=== PATIENT | female | born 1995 | race Caucasian/White ===

== ENCOUNTER → 2021-09-08 08:32 | Outpatient (CLI) | payer OTHER, SELFPAY ==
--- NOTE | 2021-09-08 08:34 | DI.US.S_ITS ---
PROCEDURE: US OB <= 14 WEEKS FETUS INDICATIONS: Dating and viability OUTSIDE/PRIOR DATING DATA: Last menstrual period (LMP): 07/09/2021. LMP-based estimated date of delivery (EDNA): 04/15/2022. First dating scan (date and location): 09/08/2021. Estimated date of delivery (EDNA) from first dating scan: 04/14/2022. The calculations are made using the ultrasound EDNA of 04/14/2022. TECHNIQUE: Real-time scanning was performed of the fetus and maternal pelvic organs, with image documentation. COMPARISON: None. FINDINGS: Embryo: [place]-rump length measures 2.2 cm, 8 weeks 6 days Heart rate: 175 beats per minute Maternal organs: Ovaries demonstrate a left ovarian corpus luteum, otherwise unremarkable.. IMPRESSION: Living 1st trimester intrauterine with crown-rump length and heartbeat measuring 8 weeks 6 days. We strive to produce accurate, complete, and clear reports of imaging services. To assist us in improving patient care, this report was composed using standard report templates and voice recognition software. Therefore, it may contain abnormal punctuation, insertions and/or omissions. Occasional wrong-word or sound-alike substitutions may occur. Though we review the report and make efforts to correct it, we do recommend that the report be read carefully in proper context to recognize any text inaccuracies. Dictated by: Vic Rene M.D. on 09/08/2021 at 11:21 Approved by: Vic Rene M.D. on 09/08/2021 at 11:24
== END ==
PROVIDERS: PCP Physician Assistant; Referring Provider Obstetrics & Gynecology; Visit Provider Obstetrics & Gynecology
DX: Z34.01 Encounter for supervision of normal first pregnancy, first trimester (principal); Z3A.08 8 weeks gestation of pregnancy
CPT/HCPCS: 36415; 76801; 80055; 81003; 86787; 86803; 86850; 86900; 86901; 87389

== ENCOUNTER → 2021-09-08 09:14 | Outpatient (CLI) | payer OTHER, SELFPAY ==
[2021-09-08 09:52] LABS: Add Manual Diff / Slide Review NO; Basophils Absolute Auto 0 /uL (0-100); Basophils Percent Auto 0.4 % (0-2); Eosinophils Absolute Auto 100 /uL (0-450); Eosinophils Percent Auto 1.4 % (2-4); Hematocrit 38.4 % (36-46); Lymphocytes Absolute Auto 1800 /uL (1100-4500); Mean Corpuscular HGB Conc 33.7 % (30-36); Mean Corpuscular Hemoglobin 28.9 PG (26-34); Mean Corpuscular Volume 85.8 fL (80-100); Monocytes Absolute Auto 600 /uL (0-900); Monocytes Percent Auto 8.3 % (3-14); Neutrophils Absolute Auto 4900 /uL (1500-7000); Neutrophils Percent Auto 65.9 % (50-75); Platelet Count 275 X10^3/uL (150-400); Red Blood Cell Count 4.48 X10^6/uL (4.0-5.2); Red Cell Distribution Width 13.3 % (11.6-14.8); White Blood Cell Count 7.5 X10^3/uL (4.5-11.0)
[2021-09-08 10:02] LABS: Appearance Urine UA CLEAR; Bilirubin Urine UA NEGATIVE (NEGATIVE); Color Urine UA YELLOW; Glucose Urine UA NEGATIVE (Negative); Ketones Urine UA NEGATIVE (NEGATIVE); Leukocyte Esterase Urine UA NEGATIVE (NEGATIVE); Nitrite Urine UA NEGATIVE (Negative); Occult Blood Urine UA NEGATIVE (Negative); Protein Urine UA NEGATIVE (Negative); Specific Gravity Urine UA <=1.005 (1.000-1.035); Urobilinogen Urine UA 0.2 E.U./dL (0.2)
[2021-09-08 10:22] LABS: pH Urine UA 6.5 (4.5-8.0)
[2021-09-08 17:24] LABS: Hepatitis B Surface Antigen NEGATIVE s/c (NEGATIVE); Rubella Antibody IgG 23.6 IU/mL (>15)
[2021-09-08 17:45] LABS: HIV 1 & 2 Ab/Ag 4th Gen Combo NEGATIVE (NEGATIVE); Hep C Virus Ab w/Reflex Quant NEGATIVE s/c (NEGATIVE)
[2021-09-09 06:25] LABS: RPR Screen Non Reactive (Non Reactive)
[2021-09-09 12:02] LABS: Varicella IgG Antibody 308 index (Immune >165)
== END ==
PROVIDERS: PCP Physician Assistant; Referring Provider Obstetrics & Gynecology; Visit Provider Obstetrics & Gynecology
DX: Z34.01 Encounter for supervision of normal first pregnancy, first trimester (principal)
CPT/HCPCS: 36415; 80055; 81003; 86787; 86803; 86850; 86900; 86901; 87389

== ENCOUNTER → 2021-10-30 12:28 | Outpatient (CLI) | payer OTHER, SELFPAY ==
[2021-10-30 15:11] LABS: Urine N gonorrhoeae NOT DETECTED
[2021-10-30 15:12] LABS: Urine Chlamydia NOT DETECTED
[2021-11-01 20:23] LABS: AFP, Serum 16.6 ng/mL (.); Estriol, Free 0.61 ng/mL (.); Inhibin A, Dimeric 77.43 pg/mL (.); Maternal Ethnicity Caucasian (.); Maternal Weight 221 lbs (.); Number of Fetuses No (.); OSBR Risk 1 IN 10000 (.); Results Report (.); Test Results *Screen Negative* (.); hCG, MoM 1.18 (.); hCG, Serum 40122 mIU/mL (.)
== END ==
PROVIDERS: PCP Physician Assistant; Referring Provider Obstetrics & Gynecology; Visit Provider Obstetrics & Gynecology
DX: Z34.02 Encounter for supervision of normal first pregnancy, second trimester (principal); Z3A.16 16 weeks gestation of pregnancy
CPT/HCPCS: 36415; 82105; 82677; 84702; 86336; 87491; 87591

== ENCOUNTER → 2021-11-26 10:40 | Outpatient (CLI) | payer OTHER, SELFPAY ==
--- NOTE | 2021-11-26 10:41 | DI.US.S_ITS ---
PROCEDURE: US OB >= 14 WEEKS FETUS INDICATIONS: 20 Week Anatomy Scan OUTSIDE/PRIOR DATING DATA: Last menstrual period (LMP): 07/09/2021. LMP-based estimated date of delivery (EDNA): 05/15/2022. First dating scan (date and location): 09/08/2021. Estimated date of delivery (EDNA) from first dating scan: 04/14/2022. The calculations are made using the clinical EDNA of 04/15/2022. TECHNIQUE: Real-time scanning was performed of the fetus, with image documentation and biometric measurements. COMPARISON: [facility], OB <= 14 WEEKS FETUS, 09/08/2021, 8:45. FINDINGS: General: A single living intrauterine gestation is present. Presentation: Variable. Placenta: Placental position is posterior, without previa. Amniotic fluid index: 11.4 cm, normal range is 5-24 cm. Single deepest vertical pocket is 3.9 cm. heart rate: 145 beats per minute. Maternal cervical canal: 3.9 cm long. Normal lower limit is 2.5 cm. biometrics: Biparietal diameter: 4.7 cm 20 weeks 1 day Head circumference: 17.4 cm 20 weeks 0 days Abdominal circumference: 14.2 cm 19 weeks 4 days Femur length: 3.2 cm 19 weeks 6 days Clinically estimated gestational age: 20 weeks 0 days Composite gestational age from present scan: 19 weeks 6 days Estimated weight and percentile: 312 g 33rd percentile Anatomic survey: Neuro: Ventricles are non-dilated at less than 10 mm. Cisterna magna is normal at 3-11 mm. Cerebellum is normal in size and morphology. Nuchal skin fold: Normal at less than 6 mm between 14-21 weeks gestational age. Face: Nose and lips, facial profile are normal. Spine: Not well seen Heart: 4-chambered heart and ventricular outflow tracts are not well seen. Diaphragm: Not well seen Stomach: Left-sided stomach is present. Kidneys: No hydronephrosis. Normal is less than 5 mm in 2nd trimester, less than 7 mm in 3rd trimester. Cord: Not well seen Bladder: Normal in size. Extremities: All 4 extremities identified. IMPRESSION: Single live intrauterine with ultrasound gestational age today of 19 weeks 6 days. Portions of anatomy are not well visualized. Recommend interval follow-up for further evaluation of heart/outflow tracts, spine, cord insertion, chest/diaphragm. We strive to produce accurate, complete, and clear reports of imaging services. To assist us in improving patient care, this report was composed using standard report templates and voice recognition software. Therefore, it may contain abnormal punctuation, insertions and/or omissions. Occasional wrong-word or sound-alike substitutions may occur. Though we review the report and make efforts to correct it, we do recommend that the report be read carefully in proper context to recognize any text inaccuracies. Dictated by: Theresa Elias M.D. on 11/26/2021 at 17:34 Approved by: Theresa Elias M.D. on 11/26/2021 at 17:38
== END ==
PROVIDERS: PCP Physician Assistant; Referring Provider Obstetrics & Gynecology; Visit Provider Obstetrics & Gynecology
DX: Z34.02 Encounter for supervision of normal first pregnancy, second trimester (principal); Z3A.19 19 weeks gestation of pregnancy
CPT/HCPCS: 76811

== ENCOUNTER → 2021-12-10 06:43 | Outpatient (CLI) | payer OTHER, SELFPAY ==
--- NOTE | 2021-12-10 06:48 | DI.US.S_ITS ---
PROCEDURE: US OB FOLLOW UP INDICATIONS: FU anatomy scan OUTSIDE/PRIOR DATING DATA: Last menstrual period (LMP): 07/09/2021. LMP-based estimated date of delivery (EDNA): 04/15/2022 First dating scan (date and location): [facility] 09/08/2021 Estimated date of delivery (EDNA) from first dating scan: 04/14/2022 TECHNIQUE: Real-time scanning was performed of the fetus, with image documentation. Endovaginal scanning: Not performed today COMPARISON: 11/26/2021, 09/08/2021 FINDINGS: A single living intrauterine gestation is present. Presentation: Variable. Placenta: Posterior without previa Amniotic fluid index: 17.3 cm heart rate: 152 beats per minute Maternal cervical canal: 3.4 cm Estimated gestational age by initial ultrasound is 22 weeks. The cervical, thoracic, and lumbar spine are well seen and normal. The sacral spine in the skin line overlying is again not well seen due to lie. No gross abnormality/herniation is detected. Cord insertion is within normal limits. Diaphragm is within normal limits. Four-chamber and outflow tracts are well seen. IMPRESSION: Single living intrauterine at 22 weeks by initial ultrasound. Sacral spine sagittal view, including the skin overlying the spine is again not well seen secondary to lie and patient body habitus. Other parts of the anatomic survey are seen and normal, in conjunction with the previous study. Dictated by: Macho Sosa M.D. on 12/10/2021 at 12:03 Approved by: Macho Sosa M.D. on 12/10/2021 at 12:08
== END ==
PROVIDERS: PCP Physician Assistant; Referring Provider Obstetrics & Gynecology; Visit Provider Specialist
DX: Z34.92 Encounter for supervision of normal pregnancy, unspecified, second trimester (principal); Z3A.22 22 weeks gestation of pregnancy
CPT/HCPCS: 76816

== ENCOUNTER → 2022-01-16 10:16 | Outpatient (CLI) | payer OTHER, SELFPAY ==
[2022-01-16 12:49] LABS: Hematocrit 37.6 % (36-46); Hemoglobin 12.3 g/dL (12.0-16.0)
[2022-01-16 13:23] LABS: GTT (PREG) 1 Hour PP 50gm Dose 84 mg/dL (76-139)
== END ==
PROVIDERS: PCP Physician Assistant; Referring Provider Obstetrics & Gynecology; Visit Provider Obstetrics & Gynecology
DX: O26.899 Other specified pregnancy related conditions, unspecified trimester (principal); Z3A.26 26 weeks gestation of pregnancy; Z67.91 Unspecified blood type, Rh negative
CPT/HCPCS: 36415; 82950; 85014; 85018; 86850

== ENCOUNTER → 2022-02-17 11:15 | Outpatient (CLI) | payer OTHER, SELFPAY ==
--- NOTE | 2022-02-17 11:16 | DI.US.S_ITS ---
PROCEDURE: US OB FOLLOW UP INDICATIONS: SACRAL SPINE ANATOMY FOLLOW UP OUTSIDE/PRIOR DATING DATA: Last menstrual period (LMP): July 09, 2021. LMP-based estimated date of delivery (EDNA): April 15, 2022. First dating scan (date and location): September 08, 2021. Estimated date of delivery (EDNA) from first dating scan: April 14, 2022. TECHNIQUE: Real-time scanning was performed of the fetus, with image documentation. Endovaginal scanning: Not performed COMPARISON: [facility], OB FOLLOW UP, 12/10/2021, 7:07. FINDINGS: A single living intrauterine gestation is present. Presentation: Vertex. Placenta: Placental position is posterior, without previa. Amniotic fluid index: 14.3 cm, normal range is 5-24 cm. Single deepest vertical pocket is 6.2 cm. heart rate: 160 beats per minute. Maternal cervical canal: 3.3 cm long. Normal lower limit is 2.5 cm. Estimated gestational age from initial scan: 31 weeks and 6 days. The sacral spine was re-evaluated and appears within normal limits on today's evaluation. IMPRESSION: Single living intrauterine gestation with estimated gestational age of approximately 31 weeks and 6 days. Re-evaluation of the sacral spine appears within normal limits. Dictated by: Rafael Damon M.D. on 02/17/2022 at 21:00 Approved by: Rafael Damon M.D. on 02/17/2022 at 21:03
== END ==
PROVIDERS: PCP Student in an Organized Health Care Education/Training Program; Referring Provider Obstetrics & Gynecology; Visit Provider Obstetrics & Gynecology
DX: Z36.2 Encounter for other antenatal screening follow-up (principal); Z3A.31 31 weeks gestation of pregnancy
CPT/HCPCS: 76816; 76817

== ENCOUNTER → 2022-03-18 07:58 | Outpatient (CLI) | payer OTHER, SELFPAY ==
[2022-03-19 11:48] LABS: Strep Grp B PCR POS for Grp B Strep
== END ==
PROVIDERS: PCP Student in an Organized Health Care Education/Training Program; Visit Provider Obstetrics & Gynecology
DX: Z34.83 Encounter for supervision of other normal pregnancy, third trimester (principal); Z3A.36 36 weeks gestation of pregnancy
CPT/HCPCS: 87086; 87653

== ENCOUNTER → 2022-03-25 08:37 | Outpatient (CLI) | payer OTHER, SELFPAY ==
[2022-03-25 09:31] LABS: Add Manual Diff / Slide Review NO; Basophils Absolute Auto 100 /uL (0-100); Basophils Percent Auto 0.5 % (0-2); Eosinophils Absolute Auto 100 /uL (0-450); Eosinophils Percent Auto 1.2 % (2-4); Hematocrit 38.5 % (36-46); Hemoglobin 12.5 g/dL (12.0-16.0); Lymphocytes Absolute Auto 1900 /uL (1100-4500); Lymphocytes Percent Auto 15.7 % (25-40); Mean Corpuscular HGB Conc 32.4 % (30-36); Mean Corpuscular Hemoglobin 28.1 PG (26-34); Mean Corpuscular Volume 86.7 fL (80-100); Monocytes Absolute Auto 1300 /uL (0-900); Monocytes Percent Auto 10.3 % (3-14); Neutrophils Absolute Auto 8800 /uL (1500-7000); Neutrophils Percent Auto 72.3 % (50-75); Platelet Count 271 X10^3/uL (150-400); Red Blood Cell Count 4.44 X10^6/uL (4.0-5.2); Red Cell Distribution Width 14.6 % (11.6-14.8); White Blood Cell Count 12.2 X10^3/uL (4.5-11.0)
[2022-03-25 09:46] LABS: Alanine Aminotransferase 16 IU/L (<35); Albumin 3.4 g/dL (3.5-5.0); Albumin Globulin Ratio 1.1 (1.0-2.8); Alkaline Phosphatase 110 U/L (38-126); Aspartate Aminotransferase 21 IU/L (14-36); BUN Creatinine Ratio 16.7 (6-22); Bilirubin Total 0.3 mg/dL (0.2-1.3); Blood Urea Nitrogen 9 mg/dL (7-17); Calcium 9.7 mg/dL (8.4-10.2); Carbon Dioxide 22 mmol/L (22-32); Chloride 106 mmol/L (98-107); Estimated Glomerular Filt Rate > 60 mL/min (>60); Glucose 90 mg/dL (70-100); HEMOLYSIS < 15 (0-50); Potassium 4.1 mmol/L (3.4-5.1); Sodium 135 mmol/L (137-145); Total Protein 6.4 g/dL (6.3-8.2); Uric Acid 3.8 mg/dL (2.5-6.2)
== END ==
PROVIDERS: PCP Student in an Organized Health Care Education/Training Program; Referring Provider Obstetrics & Gynecology; Visit Provider Obstetrics & Gynecology
DX: O13.9 Gestational [pregnancy-induced] hypertension without significant proteinuria, unspecified trimester (principal)
CPT/HCPCS: 36415; 80053; 84550; 85025

== ENCOUNTER → 2022-04-01 12:17 | Outpatient (CLI) | payer OTHER, SELFPAY | PROVIDERS: PCP Student in an Organized Health Care Education/Training Program; Visit Provider Obstetrics & Gynecology | DX: Z34.03 Encounter for supervision of normal first pregnancy, third trimester (principal); Z3A.36 36 weeks gestation of pregnancy | CPT/HCPCS: 87086 ==

== ENCOUNTER → 2022-04-01 12:26 | Outpatient (CLI) | payer OTHER, SELFPAY ==
[2022-04-01 13:17] LABS: Add Manual Diff / Slide Review NO; Basophils Absolute Auto 0 /uL (0-100); Basophils Percent Auto 0.1 % (0-2); Eosinophils Absolute Auto 100 /uL (0-450); Eosinophils Percent Auto 0.6 % (2-4); Hematocrit 37.6 % (36-46); Hemoglobin 12.3 g/dL (12.0-16.0); Lymphocytes Absolute Auto 1700 /uL (1100-4500); Lymphocytes Percent Auto 14.1 % (25-40); Mean Corpuscular HGB Conc 32.8 % (30-36); Mean Corpuscular Hemoglobin 28.1 PG (26-34); Mean Corpuscular Volume 85.7 fL (80-100); Monocytes Absolute Auto 1400 /uL (0-900); Monocytes Percent Auto 11.5 % (3-14); Neutrophils Absolute Auto 8600 /uL (1500-7000); Neutrophils Percent Auto 73.7 % (50-75); Platelet Count 268 X10^3/uL (150-400); Red Blood Cell Count 4.39 X10^6/uL (4.0-5.2); Red Cell Distribution Width 14.6 % (11.6-14.8); White Blood Cell Count 11.7 X10^3/uL (4.5-11.0)
[2022-04-01 14:25] LABS: Alanine Aminotransferase 18 IU/L (<35); Albumin 3.5 g/dL (3.5-5.0); Albumin Globulin Ratio 1.1 (1.0-2.8); Alkaline Phosphatase 122 U/L (38-126); Aspartate Aminotransferase 22 IU/L (14-36); BUN Creatinine Ratio 11.8 (6-22); Bilirubin Total 0.3 mg/dL (0.2-1.3); Blood Urea Nitrogen 6 mg/dL (7-17); Calcium 9.5 mg/dL (8.4-10.2); Carbon Dioxide 22 mmol/L (22-32); Chloride 105 mmol/L (98-107); Estimated Glomerular Filt Rate > 60 mL/min (>60); Globulin 3.1 g/dL (1.7-4.1); Glucose 88 mg/dL (70-100); HEMOLYSIS < 15 (0-50); Potassium 4.3 mmol/L (3.4-5.1); Sodium 133 mmol/L (137-145); Total Protein 6.6 g/dL (6.3-8.2)
== END ==
PROVIDERS: PCP Student in an Organized Health Care Education/Training Program; Referring Provider Obstetrics & Gynecology; Visit Provider Obstetrics & Gynecology
DX: O13.3 Gestational [pregnancy-induced] hypertension without significant proteinuria, third trimester (principal); Z3A.36 36 weeks gestation of pregnancy
CPT/HCPCS: 36415; 80053; 85025; 87086

== ENCOUNTER 2022-04-06 19:19 | Inpatient (IN) | payer OTHER, SELFPAY ==
[2022-04-06 20:14] VITALS: BP 122/74; PULSE 92
[2022-04-06] MEDS: LABETALOL 100 MG TABLET PO (20:14)
[2022-04-06 20:28] LABS: Add Manual Diff / Slide Review NO; Basophils Absolute Auto 0 /uL (0-100); Basophils Percent Auto 0.4 % (0-2); Eosinophils Absolute Auto 100 /uL (0-450); Eosinophils Percent Auto 0.5 % (2-4); Hemoglobin 12.4 g/dL (12.0-16.0); Lymphocytes Absolute Auto 1900 /uL (1100-4500); Lymphocytes Percent Auto 19.9 % (25-40); Mean Corpuscular HGB Conc 34.3 % (30-36); Mean Corpuscular Volume 84.5 fL (80-100); Monocytes Absolute Auto 1000 /uL (0-900); Monocytes Percent Auto 10.6 % (3-14); Neutrophils Absolute Auto 6600 /uL (1500-7000); Neutrophils Percent Auto 68.6 % (50-75); Platelet Count 282 X10^3/uL (150-400); Red Blood Cell Count 4.26 X10^6/uL (4.0-5.2); Red Cell Distribution Width 14.2 % (11.6-14.8); White Blood Cell Count 9.6 X10^3/uL (4.5-11.0)
[2022-04-06] MEDS: miSOPROStoL 200 MCG TABLET 50 MCG PO (20:43)
--- NOTE | 2022-04-06 21:27 | P.HPOB_ITS ---
OB HPI Date/Time Date of admission: 04/06/22 Date Patient Seen: 04/07/22 Time Patient Seen: 08:05 History of Present Condition Chief complaint: IUP 38+5 wks EGA, GHTN, Rh NEG, GBS+ : 1 Para: 0 Estimated Date of Delivery: 04/15/22 Estimated Gestational Age (weeks): 38+5 Narrative: Chai Benítez is a 27 year old admitted for cervical ripening and induction now at 38+5 weeks EGA due to gestational HTN currently treated with Labetalol 100 mg PO BID. Twice weekly NSTs and lab testing have been unremarkable with the exception of mild elevation of the protein to creatinine ratio. Patient's course is largely been uneventful with firm dating and appropriate milestones throughout. Patient is Rh negative and received RhoGAM at 28 weeks. Patient is GBS positive. Indications Indication for induction OB: gestational HTN/pre-eclampsia History of Present care: good care Obstetrical complications: gestational hypertension Medical complications: none Preadmission Labs Blood type: 0 (-) negative -: Antibody screen: negative, GBS status: positive, HBsAG: negative, HIV: negative and RPR/VDLR: negative -: Chlamydia screen: not detected and Gonorrhea screen: not detected -: Rubella: immune and Varicella: immune HCT: 37.6 HCAB: negative PAP: Normal Quad screen: Normal 1 hr GTT: 84 Prior (ies) History: G1 Evaluation Evaluation Baseline heart rate: 140 Variability: Moderate (11-25) monitor accelerations: Present Monitor Decelerations: Absent Contraction Frequency (minutes): 5 Uterine Contraction Intensity: Mild Category of Tracing: Reactive Status: Category l Dilation (cm): 1 Effacement (%): 85 Dilation: Closed Effacement: >/=80% station: -2 Position of cervix: mid Consistency: soft Santana score: 7 [facility] Medical History (Updated 04/01/22 @ 12:27 by Edgard Benavides MD) Acid reflux Family History (Updated 09/01/21 @ 15:05 by Amy Harry RN) Mother No known health problems Grandfather Stroke Heart disease Stomach cancer Grandmother No known health problems Father No known health problems Grandfather No known health problems Grandmother No known health problems Social History marital status: number of children: 0 household members: spouse lives independently: Yes housing: house pets and animals: Yes (2 dogs and 1 guinea pig) education level: college (Gerardo's degree) occupational status: employed (sales) current occupational exposures/hazards: No special kaylin needs: No travel history: over 6 months ago seatbelt use: always water heater temp set < 120 deg: Yes working smoke detector in home: Yes fire extinguisher in home: No carbon monox detector in home: Yes firearms in home: Yes firearms unloaded and locked: Yes do you feel safe at home: Yes Smoking Status: Never smoker second hand exposure: No alcohol intake: former (occasional, not while ) substance use type: marijuana (CBD gummies years ago) during the past year weight has: increased > 10 lbs well-balanced diet: about half the time daily servings fruits/ve-4 caffeine: No (unable to tolerate coffee since ) Type(s) of exercise: walking, weight lifting, other (hiking) and yoga Meds Home Medications and Allergies Home Medications Medication Instructions Recorded Confirmed Type prenat.vits,domenic,xqa-tdcz-bewnu 1 tab PO DAILY 09/01/21 04/06/22 History labetalol 100 mg tablet 100 mg PO BID #60 tabs 03/25/22 04/06/22 Rx Allergies Allergy/AdvReac Type Severity Reaction Status Date / Time No Known Allergies Allergy Verified 04/01/22 11:44 Review of Systems Review of Systems Narrative: Problem-specific ROS positives included in HPI OB Exam Vital signs Blood Pressure: 115/74 Pulse Rate: 89 Temperature: 97.7 F HENMT Head: normal to inspection, normocephalic and atraumatic Eyes General: appearance normal, both eyes and all related structures Resp Effort & Inspection: normal respiratory effort and able to speak in complete sentences Auscultation: clear to auscultation bilaterally Cardio Rate: regular rate Rhythm: regular rhythm Heart Sounds: S1 normal, S2 normal and no murmurs Extremities Lower extremity: Yes normal to inspection GI Inspection: normal to inspection Palpation: Yes soft and Yes no hepatosplenomegaly Uterus Location (Fundal Height): 38 Presentation: vertex Estimated Weight (lbs): 8 Objective Labs 04/06/22 20:00 Labs: Laboratory Results - last 24 hr 04/06/22 20:00 WBC 9.6 RBC 4.26 Hgb 12.4 Hct 36.0 MCV 84.5 MCH 29.0 MCHC 34.3 RDW 14.2 Plt Count 282 Neut % (Auto) 68.6 Lymph % (Auto) 19.9 L [place] % (Auto) 10.6 Eos % (Auto) 0.5 L Baso % (Auto) 0.4 Neut # (Auto) 6600 Lymph # (Auto) 1900 [place] # (Auto) 1000 H Eos # (Auto) 100 Baso # (Auto) 0 Assessment and Plan Assessment and Plan Assessment and Plan narrative: ASSESSMENT 1. Intrauterine , 38+5 weeks EGA 2. Gestational HTN/PEC w/o severe features 3. Rh negative status 4. GBS positive PLAN 1. Admit for ripening/induction 2. See orders Time Spent with Patient Total time spent with greater than 50% in coordination of care (as documented) at patient's floor/unit and/or counseling patient:: 15-24 minutes
[2022-04-06 22:10] LABS: Alanine Aminotransferase 25 IU/L (<35); Albumin 3.5 g/dL (3.5-5.0); Albumin Globulin Ratio 1.1 (1.0-2.8); Alkaline Phosphatase 130 U/L (38-126); Aspartate Aminotransferase 28 IU/L (14-36); BUN Creatinine Ratio 8.8 (6-22); Bilirubin Total 0.5 mg/dL (0.2-1.3); Blood Urea Nitrogen 5 mg/dL (7-17); Calcium 8.8 mg/dL (8.4-10.2); Carbon Dioxide 23 mmol/L (22-32); Chloride 106 mmol/L (98-107); Estimated Glomerular Filt Rate > 60 mL/min (>60); Globulin 3.2 g/dL (1.7-4.1); Glucose 77 mg/dL (70-100); HEMOLYSIS < 15 (0-50); Potassium 3.2 mmol/L (3.4-5.1); Sodium 137 mmol/L (137-145); Total Protein 6.7 g/dL (6.3-8.2)
[2022-04-06 22:26] LABS: Protein (Total) Urine Random 14 mg/dL (0-12)
[2022-04-07] MEDS: miSOPROStoL 200 MCG TABLET 50 MCG PO (02:42)
[2022-04-07 08:26] VITALS: BP 115/74; PULSE 89; TEMP 36.5
[2022-04-07] MEDS: LACTATED RINGERS 1,000 ML 100 ML IV ×2 (08:45→16:57)
[2022-04-07] MEDS: OXYTOCIN PREMIX 30 UNIT/500 ML PLAST..BAG IV (08:46)
[2022-04-07 09:01] VITALS: BP 113/70; PULSE 85
[2022-04-07] MEDS: LABETALOL 100 MG TABLET PO ×2 (09:01→22:14)
[2022-04-07] MEDS: PENICILLIN G POTASSIUM 5,000,000 UNIT in DEXTROSE 5% IN WATER 250 ML 250 UNIT IV (09:01)
[2022-04-07] MEDS: PENICILLIN G POTASSIUM 3,000,000 UNIT/50 ML FROZ.PIGGY 50 UNIT IV ×3 (13:03→21:04)
--- NOTE | 2022-04-07 17:20 | PM.OBPNLAB ---
Date/Time Date Patient Seen: 04/07/22 Time Patient Seen: 17:20 Pain Control Pain control: tolerating well Pelvic Exam Dilation (cm): 2 Effacement (%): 90 station: -1 Amniotic membrane status: Intact Contractions Contractions on admission: none Monitor mode: External Pitocin rate (mU/min): 10 Contraction pattern: Regular Contraction phase: Resting Contraction intensity: Mild Status status: Category l Heart Rate Baseline: 135 Monitor Accelerations: Present Monitor Decelerations: Absent Monitor Variability: Moderate Assessment and Plan Assessment: induction ongoing Plan: other Comments: Patient has progressed slowly today with pitocin following PO cytotec but Santana's score now 9. Options reviewed with the patient and will stop Pitocin overnight in favor of cervidil placement and re-evaluate in the AM if undelivered.
[2022-04-07] MEDS: CALCIUM CARBONATE 500 MG TAB PO (22:12)
[2022-04-07 22:14] VITALS: BP 118/79; PULSE 105
[2022-04-07 22:48] VITALS: BP 125/74; PULSE 97
--- NOTE | 2022-04-08 00:25 | PM.OBPRVD ---
Events: Induced HTN Labor & Delivery Delivery date: 04/07/22 Intrapartal Events: None Cervical ripening method: per misoprostal protocol Induction method: per pitocin protocol Delivery augmentation: pitocin Delivery monitor: external FHT and external uterine Route of delivery: Episiotomy description: None L&D Laceration Description: Perineal - 1st Degree and Labial (Right, 2nd degree; Left 1st degree) Delivery repair: chromic Estimated blood loss (mL): 250 Anesthesia Type: Epidural Complications: None Narrative: Following a 57 minute 2nd stage, the patient delivered spontaneously over an intact perineum viable male infant from left occiput anterior position with a weight 3107 gms. (6 lb. 13.6 oz.) and Apgars of 9/9. No shoulder dystocia or cord entanglement was noted but the delivering presentation was compound with the vertex in the right hand. Following delivery of the infant, skin to skin contact was initiated immediately and delayed cord clamping performed. Once the umbilical cord was doubly clamped and cut, a cord blood sample was obtained for routine studies. The placenta was delivered easily with gentle cord traction and suprapubic countertraction. Placenta was then inspected and found to be intact with a three-vessel cord inserting centrally. Intravenous Pitocin was initiated immediately after delivery of the placenta and post delivery bleeding was minimal. Inspection of the perineum revealed the lacerations as noted above and each was individually closed with either 2-0 or 3-0 chromic catgut suture under epidural anesthesia. Mother and infant both tolerated the delivery process well and were in good condition at conclusion. No complications were experienced. Baby 1: Infant gender: Male Presentation: vertex Position: Left Occiput Anterior Placenta delivery description: Spontaneous Cord Vessel Description: 3 Vessels score (1 min): 9 score (5 min): 9 weight: 6 lb 13.596 oz Plan for aftercare: Routine care
[2022-04-08] MEDS: IBUPROFEN 600 MG TABLET PO ×3 (02:42→14:19)
[2022-04-08] MEDS: ACETAMINOPHEN 325 MG TABLET 650 MG PO ×3 (02:42→14:19)
[2022-04-08] MEDS: DERMOPLAST SPRAY 20% 60 ML 1 SPRAY TOP (02:44)
[2022-04-08] MEDS: LANOLIN OINT 7 GM 1 APPLIC TOP (07:57)
[2022-04-08 09:11] VITALS: BP 106/60; PULSE 68
[2022-04-08] MEDS: DOCUSATE 100 MG CAPSULE PO ×2 (09:11→21:16)
[2022-04-08] MEDS: LABETALOL 100 MG TABLET PO (09:11)
[2022-04-08 14:11] LABS: Add Manual Diff / Slide Review NO; Basophils Absolute Auto 0 /uL (0-100); Basophils Percent Auto 0.3 % (0-2); Eosinophils Absolute Auto 100 /uL (0-450); Eosinophils Percent Auto 0.6 % (2-4); Hematocrit 33.7 % (36-46); Hemoglobin 11.1 g/dL (12.0-16.0); Lymphocytes Absolute Auto 2400 /uL (1100-4500); Mean Corpuscular HGB Conc 32.9 % (30-36); Mean Corpuscular Hemoglobin 28.3 PG (26-34); Mean Corpuscular Volume 86.1 fL (80-100); Monocytes Absolute Auto 1400 /uL (0-900); Neutrophils Absolute Auto 8800 /uL (1500-7000); Neutrophils Percent Auto 69.1 % (50-75); Platelet Count 258 X10^3/uL (150-400); Red Blood Cell Count 3.91 X10^6/uL (4.0-5.2); Red Cell Distribution Width 14.2 % (11.6-14.8); White Blood Cell Count 12.7 X10^3/uL (4.5-11.0)
[2022-04-08 15:00] VITALS: BP 134/79; PULSE 90; RESP 16; TEMP 36.5
--- NOTE | 2022-04-08 17:43 | PM.OBPN.1 ---
Subjective - OB Subjective Patient comments: no complaints, pain well controlled and flatus present baby status: doing well [place] feeding status: exclusively breast feeding Narrative: Mother and baby are both doing extremely well. Date Patient Seen: 04/08/22 Time Patient Seen: 08:10 Exam Const General: cooperative and comfortable Nutritional Appearance: average body habitus Orientation: alert and oriented x3 HENMT Head: normal to inspection, atraumatic and abrasion Ears: hearing grossly normal bilaterally Face and sinus: face symmetric Eyes General: appearance normal, both eyes and all related structures Conjunctivae: conjunctivae normal Sclera: sclerae normal EOM: EOM intact bilaterally Neck Neck: normal visual inspection Resp Effort & Inspection: normal respiratory effort and able to speak in complete sentences External Female Exam: other (No significant bleeding noted) Extrem General: no calf tenderness Psych Appearance: grossly normal Mental Status: mental status grossly normal Speech and Movement: speech and movement normal Mood: congruent mood Affect: normal affect Attitude: cooperative Thought Process: normal Thought Content: normal Judgment: judgment good Objective Labs 04/08/22 13:59 04/06/22 21:45 Labs: Laboratory Results - last 24 hr 04/08/22 13:59 WBC 12.7 H RBC 3.91 L Hgb 11.1 L Hct 33.7 L MCV 86.1 MCH 28.3 MCHC 32.9 RDW 14.2 Plt Count 258 Neut % (Auto) 69.1 Lymph % (Auto) 19.0 L [place] % (Auto) 11.0 Eos % (Auto) 0.6 L Baso % (Auto) 0.3 Neut # (Auto) 8800 H Lymph # (Auto) 2400 [place] # (Auto) 1400 H Eos # (Auto) 100 Baso # (Auto) 0 Assessment & Plan Plan day: 1 plan OB: routine care Comments: Anticipate discharge to 04/09/2022 Time Spent With Patient Time: Total time spent is greater than 50% in coordination of care (as documented) at patient's floor/unit and/or counseling patient: Time with patient: 15-24 minutes
[2022-04-09] MEDS: IBUPROFEN 600 MG TABLET PO (05:25)
--- NOTE | 2022-04-09 07:45 | P.DS_ITS ---
Discharge Providers Provider Date of admission: 04/06/22 19:19 Discharge Date: 04/09/22 Primary care physician: Moe De La Rosa MD Consults: 04/06/22 19:41 Consult to Anesthesiology Urgent Comment: Consulting Provider: Edgard Benavides Reason for consultation: Epidural Has provider been notified: No 04/09/22 00:21 Consult to [employer] Routine Comment: Discharge provider: Edgard Benavides MD Summary Hospital Course Date Patient Seen: 04/09/22 Time Patient Seen: 07:45 Diagnoses: Intrauterine gestation, 38+ 5 weeks gestational age, delivered by spontaneous vaginal Gestational hypertension Rh-negative status GBS positive Hospital Course: Chai was admitted on the evening of 04/06/2022 for cervical ripening prior to induction for gestational hypertension. Oral Cytotec was initiated initially for ripening followed by initiation of Pitocin for induction on the morning of 04/07/2022. She delivered late on the evening of 04/07/2022 viable male with Apgars of 9/9 and a weight of 3107 g (6 lb 13.6 oz). Both mother and baby have done well following delivery with the mother experiencing prompt return of bowel and bladder function, she is ambulating independently, tolerating regular diet, and her pain is well controlled with oral pain medications. She will be discharged at this time to home in an afebrile normotensive condition after counseling regarding precautionary symptoms, limitations of activity, medications, and plans for follow-up which will be in 6 weeks. Patient will continue using her labetalol 100 mg p.o. b.i.d. until her 6 week checkup and will also resume vitamins daily. In addition she was prescribed ibuprofen 600 mg p.o. q.6 hours as needed for pain. Peripartum Data Infant Delivery Method: Natural Vaginal Laceration Description: Perineal - 1st Degree and Labial (Bilateral) Episiotomy description: None Procedures: Continuous lumbar epidural placement in labor Spontaneous vaginal complications: none [place] 1: Gender: Male Disposition of : home Discharge Diagnosis (1) GBS (group B Streptococcus carrier), +RV culture, currently : Status: Acute (2) Gestational hypertension: Status: Acute (3) Rh negative state in antepartum period: Status: Acute (4) : Status: Acute Status at Discharge Cognitive/behavioral status at discharge: oriented Functional status at discharge: independent ambulation Overall status at discharge: patient is progressing back to baseline Time Spent with Patient Time attestation: Total time spent providing and/or coordinating discharge services: Time spent: Less than 30 minutes Objective Labs 04/08/22 13:59 04/06/22 21:45 Labs: Laboratory Results - last 24 hr 04/08/22 13:59 WBC 12.7 H RBC 3.91 L Hgb 11.1 L Hct 33.7 L MCV 86.1 MCH 28.3 MCHC 32.9 RDW 14.2 Plt Count 258 Neut % (Auto) 69.1 Lymph % (Auto) 19.0 L [place] % (Auto) 11.0 Eos % (Auto) 0.6 L Baso % (Auto) 0.3 Neut # (Auto) 8800 H Lymph # (Auto) 2400 [place] # (Auto) 1400 H Eos # (Auto) 100 Baso # (Auto) 0 Exam Const General: cooperative and comfortable Nutritional Appearance: average body habitus Orientation: alert and oriented x3 HENMT Head: normal to inspection, atraumatic and abrasion Ears: hearing grossly normal bilaterally Face and sinus: face symmetric Eyes General: appearance normal, both eyes and all related structures Conjunctivae: conjunctivae normal Sclera: sclerae normal EOM: EOM intact bilaterally Neck Neck: normal visual inspection Resp Effort & Inspection: normal respiratory effort and able to speak in complete sentences GI Inspection: normal to inspection Palpation: soft and no hepatosplenomegaly External Female Exam: other (No significant bleeding noted) Extrem General: no calf tenderness Psych Appearance: grossly normal Mental Status: mental status grossly normal Speech and Movement: speech and movement normal Mood: congruent mood Affect: normal affect Attitude: cooperative Thought Process: normal Thought Content: normal Judgment: judgment good Discharge Plan Discharge Plan Patient Disposition: Home Provider Discharge Comment: Please review the written instructions you received when you were discharged from the hospital. Your follow-up appointment will be scheduled for 6 weeks after delivery and I look forward to seeing you then. If however in the meanwhile you have any issues, concerns, or questions, please contact me either through the office phone at [phone], or via the patient portal. Discharge orders & Medications Prescriptions: New ibuprofen 600 mg Tablet 600 mg PO Q6HR PRN (Reason: Pain, Mild (1-3)) Qty: 60 2RF Continued labetalol 100 mg tablet 100 mg PO BID Qty: 60 0RF prenat.vits,domenic,bai-ahmq-oyclc Tablet 1 tab PO DAILY Follow up/Referrals: Moe De La Rosa DO [Primary Care Provider] - Edgard Benavides MD [Physician] - Discharge Health Status Multidrug resistant organism: No MDRO Diet/Activity/Treatments Diet: Diet as Tolerated Activity: As tolerated Other treatments: Dqeo-obp-zelyglp Tylenol may be used for additional pain relief. Mtty-son-uptdsav stool softeners and/or MiraLax may be used for constipation. Skin/Wound/Dressing Care Report to your healthcare provider any signs of infection, such as:: chills, fever, increased pain, unusual drainage and unusual redness Dressing: N/A Visit Report/Discharge Packet Instructions: DI for Labor and Delivery, Vaginal , DI for and Nipple Soreness Stand Alone Forms: Discharge: Care Discharge Data Primary Care Provider: Moe De La Rosa
[2022-04-09 08:46] VITALS: BP 134/79; PULSE 90
[2022-04-09] MEDS: LABETALOL 100 MG TABLET PO (08:46)
[2022-04-09] MEDS: DOCUSATE 100 MG CAPSULE PO (08:47)
[2022-04-09] MEDS: TET,DIPH,PERTUSS(ACELL),VAC/PF 0.5 ML SYRINGE IM (10:41)
[2022-04-09 10:54] VITALS: BP 126/70; PULSE 81
== END 2022-04-09 10:59 | disposition home or self-care (01) | DRG 807 ==
PROVIDERS: Admitting Provider Obstetrics & Gynecology; PCP Student in an Organized Health Care Education/Training Program; Referring Provider Obstetrics & Gynecology; Visit Provider Obstetrics & Gynecology
DX: O13.4 Gestational [pregnancy-induced] hypertension without significant proteinuria, complicating childbirth (principal); Z37.0 Single live birth; Z3A.38 38 weeks gestation of pregnancy; O99.824 Streptococcus B carrier state complicating childbirth; Z67.41 Type O blood, Rh negative; O70.1 Second degree perineal laceration during delivery; O70.0 First degree perineal laceration during delivery
CPT/HCPCS: 36415; 59050; 59200; 59400; 80053; 82570; 84156; 85025; 86850; 86900; 86901; 90715; G0379; J2540; J2590; S0191

== ENCOUNTER → 2024-02-07 07:13 | Outpatient (CLI) | payer OTHER, SELFPAY ==
--- NOTE | 2024-02-07 07:14 | DI.US.S_ITS ---
PROCEDURE: US OB <= 14 WEEKS FETUS INDICATIONS: dating and viability OUTSIDE/PRIOR DATING DATA: Last menstrual period (LMP): 12/12/2023 LMP-based estimated date of delivery (EDNA): 09/17/2024 First dating scan (date and location): 02/07/2024 Estimated date of delivery (EDNA) from first dating scan: 09/25/2024 TECHNIQUE: Real-time scanning was performed of the fetus and maternal pelvic organs, with image documentation. Endovaginal scanning was also performed to better visualize the fetus and maternal ovaries. COMPARISON: [facility], , OB <= 14 WEEKS FETUS, 09/08/2021, 8:45. FINDINGS: Embryo: Intrauterine gestational sac is seen with yolk sac and pole. [place]-rump length is 1.0 cm, compatible with an estimated gestational age of 7 weeks 0 days. Heart rate: heart rate is 135 beats per minute. Maternal organs: Right ovarian corpus luteal cyst and additional more simple appearing right ovarian cyst. Heterotopic is considered unlikely. IMPRESSION: Single live intrauterine with estimated gestational age of 7 weeks 0 days, corresponding to an ultrasound EDNA of 09/25/2024. Approved by: Robert Qiu M.D. on 02/07/2024 at 12:51
== END ==
PROVIDERS: PCP Family Medicine; Referring Provider Obstetrics & Gynecology; Visit Provider Obstetrics & Gynecology
DX: Z34.81 Encounter for supervision of other normal pregnancy, first trimester (principal); Z3A.01 Less than 8 weeks gestation of pregnancy
CPT/HCPCS: 76801; 76817

== ENCOUNTER → 2024-03-14 08:01 | Outpatient (CLI) | payer OTHER, SELFPAY ==
[2024-03-14 09:44] LABS: Natera Collection Specimen Collected
[2024-03-14 10:04] LABS: Add Manual Diff / Slide Review NO; Basophils Absolute Auto 0 /uL (0-100); Basophils Percent Auto 0.5 % (0-2); Eosinophils Absolute Auto 100 /uL (0-450); Eosinophils Percent Auto 1.2 % (2-4); Hematocrit 38.6 % (36-46); Hemoglobin 12.9 g/dL (12.0-16.0); Lymphocytes Absolute Auto 1600 /uL (1100-4500); Lymphocytes Percent Auto 21.2 % (25-40); Mean Corpuscular HGB Conc 33.5 % (30-36); Mean Corpuscular Hemoglobin 29.4 PG (26-34); Mean Corpuscular Volume 87.9 fL (80-100); Monocytes Absolute Auto 600 /uL (0-900); Monocytes Percent Auto 7.4 % (3-14); Neutrophils Absolute Auto 5300 /uL (1500-7000); Neutrophils Percent Auto 69.7 % (50-75); Platelet Count 279 X10^3/uL (150-400); Red Blood Cell Count 4.39 X10^6/uL (4.0-5.2); Red Cell Distribution Width 12.8 % (11.6-14.8); White Blood Cell Count 7.6 X10^3/uL (4.5-11.0)
[2024-03-14 10:58] LABS: Alanine Aminotransferase 14 IU/L (<35); Aspartate Aminotransferase 23 IU/L (14-36); BUN Creatinine Ratio 14.8 (6-22); Blood Urea Nitrogen 8 mg/dL (7-17); Estimated Glomerular Filt Rate > 60 mL/min (>60); Uric Acid 3.2 mg/dL (2.5-6.2)
[2024-03-14 11:40] LABS: Hepatitis B Surface Antigen NEGATIVE s/c (NEGATIVE)
[2024-03-14 11:41] LABS: Rubella Antibody IgG 20.1 IU/mL (>15)
[2024-03-14 12:06] LABS: HIV 1 & 2 Ab/Ag 4th Gen Combo NEGATIVE (NEGATIVE); Hep C Virus Ab w/Reflex Quant NEGATIVE s/c (NEGATIVE)
[2024-03-14 15:01] LABS: Urine Chlamydia NOT DETECTED; Urine N gonorrhoeae NOT DETECTED
[2024-03-15 06:37] LABS: RPR Screen Non Reactive (Non Reactive); Varicella IgG Antibody Reactive (Non Reactive)
== END ==
PROVIDERS: PCP Family Medicine; Referring Provider Obstetrics & Gynecology; Visit Provider Obstetrics & Gynecology
DX: Z34.81 Encounter for supervision of other normal pregnancy, first trimester (principal); Z87.59 Personal history of other complications of pregnancy, childbirth and the puerperium
CPT/HCPCS: 80055; 82565; 84450; 84460; 84520; 84550; 86787; 86803; 86850; 86900; 86901; 87389; 87491; 87591

== ENCOUNTER → 2024-04-11 08:39 | Outpatient (CLI) | payer OTHER, SELFPAY ==
[2024-04-13 19:36] LABS: AFP Value 18.2 ng/mL (.); Gest Age on Col Date 17.3 weeks (.); Insulin Dep Diabetes No (.); OSBR Risk 1IN 10000 (.); Results Report (.); Test Results *Screen Negative* (.)
== END ==
PROVIDERS: PCP Family Medicine; Referring Provider Obstetrics & Gynecology; Visit Provider Obstetrics & Gynecology
DX: Z34.82 Encounter for supervision of other normal pregnancy, second trimester (principal); Z3A.16 16 weeks gestation of pregnancy
CPT/HCPCS: 36415; 82105

== ENCOUNTER → 2024-05-09 06:46 | Outpatient (CLI) | payer OTHER, SELFPAY ==
--- NOTE | 2024-05-09 06:47 | DI.US.S_ITS ---
PROCEDURE: US OB >= 14 WEEKS FETUS INDICATIONS: anatomy scan OUTSIDE/PRIOR DATING DATA: Working provided EDNA of 09/22/2024 TECHNIQUE: Real-time scanning was performed of the fetus, with image documentation and biometric measurements. COMPARISON: [facility], OB <= 14 WEEKS FETUS, 02/07/2024, 7:51. [facility], OB >= 14 WEEKS FETUS, 11/26/2021, 10:52. [facility], OB >= 14 WEEKS FETUS, 05/09/2024, 7:07. FINDINGS: General: A single living intrauterine gestation is present. Presentation: Transverse. Placenta: Placental position is posterior , without previa. Possible low lying. Amniotic fluid index: 18.8 cm, normal range is 5-24 cm. Single deepest vertical pocket is 5.3 cm. heart rate: 141 beats per minute. Maternal cervical canal: 7.3 cm long. Normal lower limit is 2.5 cm. biometrics: Biparietal diameter: 4.7 cm, 20 weeks and 1 day Head circumference: 18 cm, 20 weeks and 3 days Abdominal circumference: 14.7 cm, 20 weeks Femur length: 3.2 cm, 20 weeks Clinically estimated gestational age: 20 weeks and 4 days Composite gestational age from present scan: 20 weeks and 1 day Estimated weight and percentile: 329 g, 28th percentile Anatomic survey: Neuro: Ventricles are non-dilated at less than 10 mm. Cisterna magna is normal at 3-11 mm. Cerebellum is normal in size and morphology. Nuchal skin fold: Normal at less than 6 mm between 14-21 weeks gestational age. Face: Nose and lips, facial profile are normal. Spine: No evidence for spina bifida. Heart: 4-chambered heart is present, with normal ventricular outflow tracts. Diaphragm: Diaphragm is intact. Stomach: Left-sided stomach is present. Kidneys: No hydronephrosis. Normal is less than 5 mm in 2nd trimester, less than 7 mm in 3rd trimester. Cord: 3-vessel cord has orthotopic insertion. Bladder: Normal in size. Extremities: All 4 extremities identified. IMPRESSION: Living intrauterine gestation in transverse presentation. Possible low lying placenta. Close follow-up is recommended, possibly with endovaginal exam. Normal MOHSEN. Normal EFW at the 20th percentile. Otherwise, no significant abnormalities on routine anatomic survey. Dictated by: Macho Sosa M.D. on 05/09/2024 at 15:55 Approved by: Macho Sosa M.D. on 05/09/2024 at 16:00
== END ==
PROVIDERS: Family Provider Family Medicine; PCP Family Medicine; Referring Provider Obstetrics & Gynecology; Visit Provider Obstetrics & Gynecology
DX: Z36.89 Encounter for other specified antenatal screening (principal); Z3A.20 20 weeks gestation of pregnancy
CPT/HCPCS: 76811

== ENCOUNTER → 2024-06-16 09:26 | Outpatient (CLI) | payer OTHER, SELFPAY ==
[2024-06-16 12:31] LABS: Hematocrit 36.6 % (36-46); Hemoglobin 12.6 g/dL (12.0-16.0)
[2024-06-16 12:54] LABS: GTT (PREG) 1 Hour PP 50gm Dose 90 mg/dL (76-139)
== END ==
PROVIDERS: Family Provider Family Medicine; PCP Family Medicine; Referring Provider Obstetrics & Gynecology; Visit Provider Obstetrics & Gynecology
DX: Z34.82 Encounter for supervision of other normal pregnancy, second trimester (principal); Z3A.26 26 weeks gestation of pregnancy; Z87.59 Personal history of other complications of pregnancy, childbirth and the puerperium
CPT/HCPCS: 36415; 82950; 85014; 85018; 87086

== ENCOUNTER 2024-07-05 09:57 | Outpatient (CLI) | payer OTHER, SELFPAY | END 2024-07-05 11:30 | disposition home or self-care (01) | LOC: LABOR 11:24 → OB 12:45 | PROVIDERS: Family Provider Family Medicine; PCP Family Medicine; Referring Provider Obstetrics & Gynecology; Visit Provider Obstetrics & Gynecology | DX: O36.8130 Decreased fetal movements, third trimester, not applicable or unspecified (principal); Z3A.28 28 weeks gestation of pregnancy; W10.9XXA Fall (on) (from) unspecified stairs and steps, initial encounter | CPT/HCPCS: 59025; 59050; G0378; G0379 ==

== ENCOUNTER → 2024-08-15 11:53 | Outpatient (CLI) | payer OTHER, SELFPAY ==
--- NOTE | 2024-08-15 11:54 | DI.US.S_ITS ---
PROCEDURE: US OB FOLLOW UP INDICATIONS: LOW LYING PLACENTA OUTSIDE/PRIOR DATING DATA: Last menstrual period (LMP): 12/12/2023 LMP-based estimated date of delivery (EDNA): 09/17/2024 First dating scan (date and location): 02/07/2024. Estimated date of delivery (EDNA) from first dating scan: 09/25/2024 The calculations are made using the working EDNA of 09/22/2024. TECHNIQUE: Real-time scanning was performed of the fetus, with image documentation. Endovaginal scanning: Performed COMPARISON: [facility], OB FOLLOW UP, 02/17/2022, 11:25. FINDINGS: A single living intrauterine gestation is present. Presentation: Vertex Placenta: Placental position is posterior, without previa. Amniotic fluid index: 12.7 cm, normal range is 5-24 cm. Single deepest vertical pocket is 5.6 cm. heart rate: 140 beats per minute. Maternal cervical canal: 4.0 cm long. Normal lower limit is 2.5 cm. Estimated gestational age from initial scan: 34 weeks, 4 days. IMPRESSION: 1. Single live intrauterine gestation with fetus in vertex presentation. heart rate is 140 beats per minute. Normal MOHSEN at 12.7 cm. 2. No low lying placenta is seen on the current study. No placenta previa. Cervix is closed and measures 4 cm in length. Dictated by: Yoshi Feldman M.D. on 08/15/2024 at 19:32 Approved by: Yoshi Feldman M.D. on 08/15/2024 at 19:36
== END ==
LOC: US 11:54
PROVIDERS: PCP Family Medicine; Referring Provider Obstetrics & Gynecology; Visit Provider Obstetrics & Gynecology
DX: O44.43 Low lying placenta NOS or without hemorrhage, third trimester (principal); Z3A.34 34 weeks gestation of pregnancy
CPT/HCPCS: 76816; 76817

== ENCOUNTER → 2024-08-29 08:16 | Outpatient (CLI) | payer OTHER, SELFPAY ==
[2024-08-30 11:25] LABS: Strep Grp B PCR NEG for Grp B Strep
== END ==
PROVIDERS: PCP Family Medicine; Visit Provider Obstetrics & Gynecology
DX: Z36.85 Encounter for antenatal screening for Streptococcus B (principal)
CPT/HCPCS: 87653

== ENCOUNTER 2024-09-05 09:36 | Outpatient (CLI) | payer OTHER, SELFPAY ==
[2024-09-05 09:55] VITALS: BP 129/77; PULSE 91
[2024-09-05] MEDS: LABETALOL 100 MG TABLET 200 MG PO (09:55)
[2024-09-05 09:59] LABS: Add Manual Diff / Slide Review NO; Hematocrit 37.5 % (36-46); Hemoglobin 13.1 g/dL (12.0-16.0); Lymphocytes Absolute Auto 2100 /uL (1100-4500); Mean Corpuscular HGB Conc 34.8 % (30-36); Mean Corpuscular Hemoglobin 29.9 PG (26-34); Mean Corpuscular Volume 85.9 fL (80-100); Platelet Count 261 X10^3/uL (150-400)
[2024-09-05 10:12] LABS: Alanine Aminotransferase 14 IU/L (<35); Albumin 3.8 g/dL (3.5-5.0); Albumin Globulin Ratio 1.2 (1.0-2.8); Alkaline Phosphatase 100 U/L (38-126); Blood Urea Nitrogen 9 mg/dL (7-17); Calcium 9.0 mg/dL (8.4-10.2); Carbon Dioxide 18 mmol/L (22-32); Chloride 107 mmol/L (98-107); Estimated Glomerular Filt Rate > 60 mL/min (>60); Globulin 3.2 g/dL (1.7-4.1); Glucose 92 mg/dL (70-99); HEMOLYSIS < 15 (0-50); Potassium 4.1 mmol/L (3.4-5.1); Sodium 133 mmol/L (137-145); Total Protein 7.0 g/dL (6.3-8.2); Uric Acid 4.0 mg/dL (2.5-6.2)
[2024-09-05 10:25] LABS: Protein (Total) Urine Random 12 mg/dL (0-12); Protein Creatinine Ratio Urine 0.40 GRAM/24H
== END 2024-09-05 10:40 | disposition home or self-care (01) ==
LOC: LABOR 09:51 → OB 12:44
PROVIDERS: PCP Family Medicine; Referring Provider Obstetrics & Gynecology; Visit Provider Obstetrics & Gynecology
DX: O16.3 Unspecified maternal hypertension, third trimester (principal); Z3A.37 37 weeks gestation of pregnancy
CPT/HCPCS: 36415; 59025; 80053; 84550; 85025; G0378; G0379

== ENCOUNTER 2024-09-08 09:53 | Outpatient (CLI) | payer OTHER, SELFPAY ==
[2024-09-08 10:36] LABS: Add Manual Diff / Slide Review NO; Hematocrit 35.9 % (36-46); Hemoglobin 12.4 g/dL (12.0-16.0); Lymphocytes Absolute Auto 1700 /uL (1100-4500); Mean Corpuscular HGB Conc 34.7 % (30-36); Mean Corpuscular Hemoglobin 30.0 PG (26-34); Mean Corpuscular Volume 86.5 fL (80-100); Platelet Count 244 X10^3/uL (150-400)
[2024-09-08 10:53] LABS: Alanine Aminotransferase 15 IU/L (<35); Albumin 3.6 g/dL (3.5-5.0); Albumin Globulin Ratio 1.2 (1.0-2.8); Alkaline Phosphatase 96 U/L (38-126); Blood Urea Nitrogen 7 mg/dL (7-17); Calcium 9.2 mg/dL (8.4-10.2); Carbon Dioxide 17 mmol/L (22-32); Chloride 108 mmol/L (98-107); Estimated Glomerular Filt Rate > 60 mL/min (>60); Globulin 3.1 g/dL (1.7-4.1); Glucose 101 mg/dL (70-99); HEMOLYSIS < 15 (0-50); Potassium 4.0 mmol/L (3.4-5.1); Sodium 135 mmol/L (137-145); Total Protein 6.7 g/dL (6.3-8.2); Uric Acid 4.3 mg/dL (2.5-6.2)
[2024-09-08 10:58] LABS: Protein (Total) Urine Random 11 mg/dL (0-12); Protein Creatinine Ratio Urine 0.16 GRAM/24H
== END 2024-09-08 10:30 | disposition home or self-care (01) ==
LOC: LABOR 10:31 → OB 12:13
PROVIDERS: PCP Family Medicine; Referring Provider Obstetrics & Gynecology; Visit Provider Obstetrics & Gynecology
DX: Z34.83 Encounter for supervision of other normal pregnancy, third trimester (principal); Z3A.38 38 weeks gestation of pregnancy; Z87.59 Personal history of other complications of pregnancy, childbirth and the puerperium
CPT/HCPCS: 36415; 59025; 80053; 84550; 85025; G0378; G0379

== ENCOUNTER 2024-09-13 19:21 | Inpatient (IN) | payer OTHER, SELFPAY ==
--- NOTE | 2024-09-13 19:47 | PM.OBHP.IH.1 ---
OB HPI Date/Time Date of admission: 09/13/24 Date Patient Seen: 09/13/24 Time Patient Seen: 19:47 History of Present Condition Chief complaint: induction Date of Last Menstrual Period: 12/17/23 EDNA Calculator Estimated Delivery Date Method Current WG Current Estimate 09/22/24 Conception 38w 5d Other Estimates 09/17/24 LMP (Certain) 39w 3d Estimated Gestational Age (weeks): 38+5 : 2 Para: 1 Narrative: Chai is a 29-year-old , admitted now 38+ 5 weeks gestational age with 3rd trimester onset of gestational hypertension without evidence of preeclampsia or severe features. Patient experienced the same scenario with her 1st , was induced, and had an uneventful delivery as well as an uneventful course. Antepartum testing and labs have been negative/reassuring. She is currently on labetalol 100 mg p.o. b.i.d. with good control of her blood pressure although it is in the upper and mild elevation. GBS is negative. care: good care Dating criteria OB: LMP confirmed by 1st trimester US Ultrasounds: normal 1st trimester US and normal mid trimester US Obstetrical complications: gestational hypertension Medical complications OB: none Indications Indication for induction OB: gestational HTN/pre-eclampsia Preadmission Labs Last OB Lab Results: Blood Type O Negative 03/14/24, 08:43 Antibody Screen Negative 03/14/24, 08:43 Hct, (36-46) 35.9 % L 09/08/24, 10:20 Hgb, (12.0-16.0) 12.4 g/dL 09/08/24, 10:20 Hep Bs Antigen, (NEGATIVE) Negative s/c 03/14/24, 08:43 Hepatitis C Antibody, (NEGATIVE) Negative s/c 03/14/24, 08:43 Rubella Antibody, (>15) 20.1 IU/mL 03/14/24, 08:43 VZV IgG Antibody, (Non Reactive) Reactive 03/14/24, 08:43 Glucose 1 Hr 50 gm, (76-139) 90 mg/dL 06/16/24, 11:02 Group B Strep (PCR) Neg for grp b strep 08/29/24, 08:00 -: Chlamydia screen: negative, Gonorrhea screen: negative and Urine: negative -: PAP smear: Normal Genetic Screens: Quad screen: Normal, Cell-free DNA: Normal and Alpha-fetoprotein: Normal External Labs -: Urine: negative Prior (ies) Past Pregnancies Del. Date GA/Weeks Labor Lgth Wt Sex Route Outcome Anesthesia Place Delv Breastfeed Preg Comp Name 04/07/22 39 6 6 lb 14 oz Male vaginal live - full term epidural IH still going as of 01/26/24 Jaquan Hx # Term Pregnancies: 1 Hx # Pregnancies: 0 Number of Living Children: 1 Evaluation Evaluation Baseline heart rate: 135 monitor accelerations: Present Monitor Decelerations: Absent Category of Tracing: Reactive Status: Category l Dilation (cm): 1 Effacement (%): 50 Dilation: 1-2 cm Effacement: 40-50% station: -2 Position of cervix: posterior Consistency: medium Santana score: 4 PFSH Medical History (Updated 09/13/24 @ 09:03 by Edgard Benavides MD) History of induced hypertension Acid reflux Surgical History (Updated 01/26/24 @ 09:40 by Amy Harry RN) Central teeth extracted (~2023) Family History (Updated 01/26/24 @ 09:40 by Amy Harry RN) Mother Age: 50 No known health problems Grandfather Stroke Heart disease Stomach cancer Grandmother No known health problems Father No known health problems Grandfather No known health problems Grandmother No known health problems Social History marital status: number of children: 1 household members: spouse and children lives independently: Yes caregiver/support person: Yes housing: house pets and animals: Yes (dogs) education level: college (bachelor's degree) 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) current occupational exposures/hazards: No special kaylin needs: No travel history: recent (domestic only) seatbelt use: always helmet use: Yes water heater temp set < 120 deg: Yes working smoke detector in home: Yes fire extinguisher in home: Yes carbon monox detector in home: Yes firearms in home: Yes firearms unloaded and locked: Yes do you feel safe at home: Yes second hand exposure: No alcohol intake: former (rarely when not ) substance use type: marijuana during the past year weight has: decreased > 10 lbs (intentional) well-balanced diet: daily or most days daily servings fruits/ve or more times/day caffeine: Yes (limited to 2 cups coffee/day) Type(s) of exercise: walking and resistance training Meds Home Medications and Allergies Home Medications ?Medication ?Instructions ?Recorded ?Confirmed ?Type prenat.vits,domenic,ehz-wngc-ksnyt 1 tab PO DAILY 09/01/21 09/12/24 History omega-3 fatty acids 500 mg capsule mg PO DAILY 01/26/24 09/12/24 History aspirin 81 mg tablet,delayed 81 mg PO DAILY 04/24/24 09/12/24 History release (Adult Low Dose Aspirin) omeprazole 40 mg capsule,delayed 40 mg PO DAILY #30 caps 08/17/24 09/12/24 Rx release labetalol 100 mg tablet 100 mg PO BID #20 tabs 09/05/24 09/12/24 Rx Allergies Allergy/AdvReac Type Severity Reaction Status Date / Time No Known Allergies Allergy Verified 09/12/24 10:21 Review of Systems Review of Systems Narrative: Problem-specific ROS positives included in HPI OB Exam Vital signs Blood Pressure: 135/77 Pulse Rate: 93 Respiratory Rate: 17 Temperature: 97.8 F HENMT Head: normal to inspection, normocephalic and atraumatic Eyes General: appearance normal, both eyes and all related structures Resp Effort & Inspection: normal respiratory effort and able to speak in complete sentences Auscultation: clear to auscultation bilaterally Cardio Rate: regular rate Rhythm: regular rhythm Heart Sounds: S1 normal, S2 normal and no murmurs Extremities Lower extremity: Yes normal to inspection GI Inspection: normal to inspection Palpation: Yes soft and Yes no hepatosplenomegaly Uterus Location (Fundal Height): 38 Estimated Weight (lbs): 7 Assessment and Plan Assessment and Plan Assessment and Plan narrative: ASSESSMENT 1. Intrauterine , 38+ 5 weeks gestational age 2. Gestational hypertension requiring oral labetalol for control 3. Rh-negative status 4. GBS negative status PLAN 1. Admit for cervical ripening and delivery 2. See admission orders Time-Based Coding :: [TOTAL MINUTES] spent with patient and on the chart (including review of chart, obtaining history, exam, reviewing outside data, placing orders, documenting exam and treatment plan, and counseling patient) on [DATE].
[2024-09-13 19:58] VITALS: BP 135/77; PULSE 93; RESP 17; TEMP 36.6
[2024-09-13 20:54] LABS: Add Manual Diff / Slide Review NO; Hematocrit 36.7 % (36-46); Hemoglobin 12.2 g/dL (12.0-16.0); Lymphocytes Absolute Auto 2500 /uL (1100-4500); Mean Corpuscular HGB Conc 33.1 % (30-36); Mean Corpuscular Hemoglobin 29.1 PG (26-34); Mean Corpuscular Volume 88.0 fL (80-100); Platelet Count 243 X10^3/uL (150-400)
[2024-09-13] MEDS: LABETALOL 100 MG TABLET 200 MG PO (20:57)
[2024-09-13 21:04] LABS: Alanine Aminotransferase 15 IU/L (<35); Albumin 3.6 g/dL (3.5-5.0); Albumin Globulin Ratio 1.1 (1.0-2.8); Alkaline Phosphatase 112 U/L (38-126); Blood Urea Nitrogen 9 mg/dL (7-17); Calcium 9.1 mg/dL (8.4-10.2); Carbon Dioxide 19 mmol/L (22-32); Chloride 107 mmol/L (98-107); Estimated Glomerular Filt Rate > 60 mL/min (>60); Globulin 3.2 g/dL (1.7-4.1); Glucose 95 mg/dL (70-99); HEMOLYSIS < 15 (0-50); Potassium 3.7 mmol/L (3.4-5.1); Sodium 136 mmol/L (137-145); Total Protein 6.8 g/dL (6.3-8.2); Uric Acid 4.1 mg/dL (2.5-6.2)
[2024-09-14 08:41] VITALS: BP 131/77; PULSE 85
[2024-09-14] MEDS: LABETALOL 100 MG TABLET 200 MG PO ×2 (08:41→20:55)
[2024-09-14] MEDS: LACTATED RINGERS 1,000 ML 100 ML IV ×2 (11:11→12:27)
--- NOTE | 2024-09-14 12:04 | P.PCN_ITS ---
Regional Block Pre-procedure Procedure: Continuous Lumbar Epidural for L&D Attending OB provider: Edgard Benavides PMH/ROS narrative: IOL for GHTN, 38 6/7 weeks, desires epidural. Pos GERD, otherwise no significant medical history. Successful epidural with first delivery. PSH/Anesthesia history narrative: None Exam narrative: Mall II, good dentition ASA Class: II Labs: Hct 36.7 % (36-46) 09/13/24 20:40 Plt Count 243 X10^3/uL (150-400) 09/13/24 20:40 Medications: Current Medications Generic Name Dose Route Start Last Admin Trade Name Freq PRN Reason Stop Dose Admin Carboprost Tromethamine 250 mcg 09/13/24 19:29 Carboprost 250 Mcg/Ml Ampul IM Q90M PRN Bleeding Diphenhydramine HCl 25 mg 09/14/24 12:01 Diphenhydramine 50 Mg/Ml Vial IV Q10M PRN Pruritis Ephedrine Sulfate 10 mg 09/14/24 12:01 Ephedrine 50 Mg/Ml Vial IV Q5M PRN Blood pressure decrease more than 20% of baseline. Fentanyl 50 mcg 09/13/24 19:29 Fentanyl 100 Mcg/2 Ml Inj IV Q1H PRN Pain, Moderate (4-6) Oxytocin/Lactated Ringer's 30 unit in 500 mls @ 200 mls/hr 09/13/24 19:29 Oxytocin Premix IV CONT PRN Bleeding Protocol Tranexamic Acid 1,000 mg/ 100 mls @ 600 mls/hr 09/13/24 19:29 Sodium Chloride IV NOW PRN Bleeding FENT 2MCG/ML BUPIV 0.125% EPI 200 mcg in 100 mls @ 8 mls/hr 09/14/24 12:15 Fentanyl/Bupiv/Ns 2mcg/Ml - 0.125% EPIDURAL CONT SHAWN Labetalol HCl 200 mg 09/13/24 21:00 09/14/24 08:41 Labetalol 100 Mg Tablet PO 200 mg BID SHAWN Administration Lidocaine HCl 20 ml 09/13/24 19:29 Lidocaine 1% 20 Ml INJ INTRA-OP PRN Post Delivery Methylergonovine Maleate 0.2 mg 09/13/24 19:29 Methylergonovine 0.2 Mg/Ml Vial IM NOW PRN Bleeding Methylergonovine Maleate 0.2 mg 09/13/24 19:29 Methylergonovine 0.2 Mg Tablet PO Q6HR PRN Heavy Bleeding Misoprostol 400 mcg 09/13/24 19:29 Misoprostol 200 Mcg Tablet SL NOW PRN Bleeding Misoprostol 800 mcg 09/13/24 19:29 Misoprostol 200 Mcg Tablet ID NOW PRN Bleeding Misoprostol 50 mcg 09/13/24 20:15 09/14/24 05:35 Misoprostol 25 Mcg Tablet PO 50 mcg Q6H SHAWN Administration Nalbuphine HCl 2.5 mg 09/14/24 12:01 Nalbuphine 20 Mg/Ml Ampul IV Q10M PRN Pruritis Naloxone HCl 0.2 mg 09/13/24 19:29 Naloxone 0.4 Mg/Ml Vial IV Q2MIN PRN Opiate Reversal Ondansetron HCl 4 mg 09/13/24 19:29 Ondansetron 4 Mg/2 Ml Inj IV Q4HR PRN Nausea And Vomiting Oxytocin 10 unit 09/13/24 19:29 Oxytocin 10 Unit/Ml Vial IM NOW PRN Bleeding Zolpidem Tartrate 5 mg 09/13/24 20:12 Zolpidem 5 Mg Tablet PO BEDTIME PRN Sleep Allergies: Allergies Allergy/AdvReac Type Severity Reaction Status Date / Time No Known Allergies Allergy Verified 09/14/24 08:29 Procedure Insertion date: 09/14/24 Insertion time: 11:28 Prep/Local: 1% lidocaine (chloraprep skin prep, dry x 3 min) Interspace: L4-5 Patient position: sitting Needle: 17 gauge Tuohy Loss of resistance with: saline GABRIEL at (cm): 7 Catheter placed at SKIN (cm): 14 Catheter in SPACE (cm): 7 Sensory level: T10 Insertion: No CSF, No Blood, No Paresthesia with insertion, No Paresthesia with injection and No Test dose reaction Initial Medications TEST DOSE time: 11:39 BOLUS DOSE time: 11:51 BOLUS DOSE (mL): 7 BOLUS DOSE med: other (pump solution) Infusion INFUSION: 0.125% bupivacaine and with fentanyl 2 mcg/mL Initial rate (mL/hr): 8 Subsequent interventions: 1440: Increased rate to 10cc/hr, bolused 5cc 2% lidocaine Post-procedure Anesthesia date START: 09/14/24 Anesthesia time START: 11:28 Anesthesia date END: 09/14/24 Anesthesia time END: 15:20 Post-procedure Anesthesia Assessment: Yes CV function: HR/BP stable, Yes Resp function: RR/sat/airway adequate, Yes Post-op hydration adequate, Yes Pain control adequate, Yes Nausea & vomiting absent, Yes Temperature > 36 C, Yes Men abi status appropriate and Yes Anesthesia complications
--- NOTE | 2024-09-14 12:22 | PM.OBPNLAB ---
Date/Time Date Patient Seen: 09/14/24 Time Patient Seen: 11:15 Pain Control Pain control: tolerating well Pelvic Exam Dilation (cm): 5 Effacement (%): 70 station: -1 Amniotic membrane status: Ruptured (AROM, clear fluid, 1110) Contractions Contractions on admission: none Monitor mode: External Contraction pattern: Irregular Contraction phase: Resting Contraction intensity: Mild Status status: Category l Heart Rate Baseline: 145 Monitor Accelerations: Present Monitor Decelerations: Absent and Early Monitor Variability: Moderate Assessment and Plan Assessment: induction ongoing Plan: begin patient augmentation Comments: Patient will have epidural placed after AROM and Pitocin initiated to facilitate active contraction pattern. Anticipate and rapid progress in active phase/2nd stage based on first delivery experience.
[2024-09-14] MEDS: OXYTOCIN PREMIX 30 UNIT/500 ML PLAST..BAG IV (12:36)
[2024-09-14] MEDS: ONDANSETRON 4 MG/2 ML INJ IV (14:02)
[2024-09-14] MEDS: IBUPROFEN 600 MG TABLET PO (17:33)
[2024-09-14] MEDS: ACETAMINOPHEN 325 MG TABLET 650 MG PO (17:34)
[2024-09-14] MEDS: DERMOPLAST SPRAY 20% 60 ML 1 SPRAY TOP (17:35)
[2024-09-14] MEDS: LANOLIN OINT 7 GM 1 APPLIC TOP (17:35)
--- NOTE | 2024-09-14 20:48 | P.PCNOB_ITS ---
Events: Induced HTN Labor & Delivery Delivery date: 09/14/24 Delivery Time: 15:20 Intrapartal Events: None Cervical ripening method: per misoprostal protocol Induction method: AROM Delivery augmentation: pitocin Delivery monitor: external FHT and external uterine Route of delivery: Episiotomy description: None L&D Laceration Description: Labial (Left labia minora) Delivery repair: chromic Estimated blood loss (mL): 250 Anesthesia Type: Epidural Complications: None Narrative: Following a 9 minute 2nd stage, the patient delivered spontaneously over an intact perineum a viable male infant with Apgars of 5//9 and a weight of 3028 g (6 lb 10.8 oz). A tight nuchal cord was encountered at the time of delivery but no shoulder dystocia was encountered. Skin to skin contact was initiated immediately with the assistance of the father. The was not vigorous initially and delayed cord clamping was not felt to be appropriate therefore the umbilical cord was clamped and cut at approximately 30 seconds after delivery. The was then transferred to the incubator for close ob servation but responded immediately to simple measures including stimulation and at that point skin to skin contact was re-initiated. The placenta was easily delivered with gentle cord traction and suprapubic countertraction. Inspection of the placenta demonstrated essentially inserting three-vessel cord with intact placenta cotyledons. Intravenous Pitocin was initiated immediately following delivery the placenta with prompt control of vaginal bleeding. Inspection of the introitus demonstrated an avulsion of the cephalad portion of the right labia minora which was repaired in layers with 3-0 chromic catgut. Following repair of the right labia minora, sponge, instrument, and needle count sore found to be consistent with pre delivery counts and the procedure was terminated after the mother and both tolerated the process well. Baby 1: Infant gender: Male Presentation: vertex Position: Left Occiput Anterior Placenta delivery description: Spontaneous Cord Vessel Description: 3 Vessels and Nuchal Cord score (1 min): 5 score (5 min): 9 score (10 min): 9 weight: 6 lb 10.81 oz Plan for aftercare: Routine care
[2024-09-14 20:55] VITALS: BP 118/63; PULSE 86
[2024-09-15] MEDS: ACETAMINOPHEN 325 MG TABLET 650 MG PO ×3 (00:42→12:05)
[2024-09-15] MEDS: IBUPROFEN 600 MG TABLET PO ×3 (00:43→12:04)
[2024-09-15 10:20] VITALS: BP 110/70
[2024-09-15] MEDS: LABETALOL 100 MG TABLET 200 MG PO (10:20)
[2024-09-15] MEDS: PRENATAL VIT,CALC/IRON/FOLIC 1 TABLET 1 TAB PO (10:22)
[2024-09-15] MEDS: DOCUSATE 100 MG CAPSULE PO (10:23)
--- NOTE | 2024-09-15 12:23 | P.DS_ITS ---
Discharge Providers Provider Date of admission: 09/13/24 19:21 Discharge Date: 09/15/24 Primary care physician: Zuleyma Chen MD Consults: 09/13/24 19:29 Consult to Anesthesiology Urgent Comment: Consulting Provider: Edgard Benavides Reason for consultation: Epidural Has provider been notified: No 09/14/24 17:20 Consult to Pipe Foreman Routine Comment: 09/14/24 20:40 Consult to Pipe Foreman Routine Comment: Discharge provider: Edgard Benavides MD Summary Hospital Course Date Patient Seen: 09/15/24 Time Patient Seen: 12:23 Diagnoses: Intrauterine gestation, 38+ 5 weeks, delivered by spontaneous vaginal Gestational hypertension GBS negative status Hospital Course: Chai was admitted on the evening of 09/13/2024 and underwent oral misoprostol ripening which resulted in significant cervical change to the point where she was able to undergo AROM on the morning of 09/14/2024. She had a continuous lumbar epidural placed in labor and on the afternoon of 09/14/2024 she delivered spontaneously a viable male infant with of 5/9/9 and a weight of 3208 g (6 lb 10.8 oz). Following delivery both mother and baby have done exceptionally well with the mother experiencing prompt return of bowel and bladder function, she is ambulating independently, tolerating a regular diet, and her pain is well-controlled with oral pain medication. She will be discharged at this time to home in an afebrile normotensive condition after counseling regarding precautionary symptoms, limitations activity, medications, and plans for follow-up which will be in 6 weeks. Medications at discharge will include resumption of all preadmission medications and she will be using labetalol 100 mg p.o. b.i.d. until she is seen in follow-up. She will also continue to monitor her blood pressure at home and report any significant increases or decreases in her blood pressure as well as associated symptoms. Peripartum Data Laceration Description: Labial (Second-degree, repaired) Episiotomy description: None Procedures: Continuous lumbar epidural Spontaneous vaginal Repair of second-degree right labial laceration complications: none 1: Gender: Male Disposition of : home Status at Discharge Cognitive/behavioral status at discharge: oriented Functional status at discharge: independent ambulation Overall status at discharge: patient is progressing back to baseline Time Spent with Patient Time attestation: Total time spent providing and/or coordinating discharge services: Time spent: Less than 30 minutes Objective Labs 09/13/24 20:40 09/13/24 20:40 Exam Vital Signs (past 8 hours): - 09/15/24 10:20 Blood Pressure 110/70 Const General: cooperative and comfortable Nutritional Appearance: average body habitus Orientation: alert and oriented x3 HENMT Head: normal to inspection, atraumatic and abrasion Ears: hearing grossly normal bilaterally Face and sinus: face symmetric Eyes General: appearance normal, both eyes and all related structures Conjunctivae: conjunctivae normal Sclera: sclerae normal EOM: EOM intact bilaterally Neck Neck: normal visual inspection Resp Effort & Inspection: normal respiratory effort and able to speak in complete sentences GI Inspection: normal to inspection Palpation: soft and no hepatosplenomegaly External Female Exam: other (No significant bleeding noted) Extrem General: no calf tenderness Psych Appearance: grossly normal Mental Status: mental status grossly normal Speech and Movement: speech and movement normal Mood: congruent mood Affect: normal affect Attitude: cooperative Thought Process: normal Thought Content: normal Judgment: judgment good Discharge Plan Discharge Plan Patient Disposition: Home Provider Discharge Comment: Please review the written instructions you received when you were discharged from the hospital. Your follow-up appointment will be scheduled for 6 weeks after delivery and we look forward to seeing you then. If however in the meanwhile you have any issues, concerns, or questions, please contact me through the office phone at [phone], or via the patient portal. Discharge orders & Medications Prescriptions: New labetalol 100 mg tablet 100 mg PO BID Qty: 60 2RF Continued omeprazole 40 mg capsule,delayed release(DR/EC) 40 mg PO DAILY Qty: 30 4RF labetalol 100 mg tablet 100 mg PO BID Qty: 20 1RF prenat.vits,domenic,lgq-qhlq-gsecd Tablet 1 tab PO DAILY omega-3 fatty acids 500 mg capsule PO DAILY Discontinued aspirin [Adult Low Dose Aspirin] 81 mg tablet,delayed release (DR/EC) 81 mg PO DAILY Follow up/Referrals: Zuleyma Chen MD [Primary Care Provider, Family Practice] Edgard Benavides MD [Physician, [employer]ATE [employer]] Referral Note: Please follow up with Dr. Benavides on October 27 @ 1:30pm for you 6 week visit Discharge Health Status Multidrug resistant organism: No MDRO Diet/Activity/Treatments Diet: Diet as Tolerated Activity: As tolerated Other treatments: Ozmd-xej-moypyfx Tylenol and/or ibuprofen can be used for pain relief. Lltv-ibd-leyikrc stool softeners and/or MiraLax can be used as needed for constipation Skin/Wound/Dressing Care Report to your healthcare provider any signs of infection, such as:: chills, fever, increased pain, unusual drainage and unusual redness Dressing: N/A Visit Report/Discharge Packet Instructions: DI for Labor and Delivery, Vaginal , DI for and Nipple Soreness Stand Alone Forms: Stroke Signs & Symptoms Discharge Data Primary Care Provider: Zuleyma Chen
[2024-09-15 13:00] VITALS: BP 117/70; PULSE 86; RESP 17; TEMP 36.7
== END 2024-09-15 13:55 | disposition home or self-care (01) | DRG 807 ==
PROVIDERS: Admitting Provider Obstetrics & Gynecology; PCP Family Medicine; Referring Provider Family Medicine; Visit Provider Obstetrics & Gynecology
DX: O13.4 Gestational [pregnancy-induced] hypertension without significant proteinuria, complicating childbirth (principal); Z37.0 Single live birth; O70.0 First degree perineal laceration during delivery; Z3A.38 38 weeks gestation of pregnancy; Z67.41 Type O blood, Rh negative
CPT/HCPCS: 36415; 59050; 80053; 84550; 85025; 86850; 86900; 86901; G0379; J2405; J2590

== ENCOUNTER → 2025-01-03 09:53 | Outpatient (CLI) | payer OTHER, SELFPAY ==
[2025-01-03 10:45] LABS: Hemoglobin A1C% w Est Avg Glu 4.9 % (4.0-6.0)
[2025-01-03 10:53] LABS: Cholesterol 209 mg/dL (140-199); HDL Cholesterol 73 mg/dL (40-60); Triglycerides 66 mg/dL (35-150)
== END ==
PROVIDERS: Family Provider Family Medicine; PCP Family Medicine; Referring Provider Family Medicine; Visit Provider Family Medicine
DX: E66.3 Overweight (principal)
CPT/HCPCS: 36415; 80061; 83036